=== PATIENT | male | born 1950 | race Caucasian/White ===

== ENCOUNTER 2024-12-03 13:25 | Observation (INO) | payer MEDICARE ==
--- NOTE | 2024-12-03 14:25 | XR ---
EXAMINATION TYPE: XR chest 2V DATE OF EXAM: 12/03/2024 2:22 PM COMPARISON: None. CLINICAL INDICATION: Male, 74 years old with history of difficulty breathing, TECHNIQUE: XR chest 2V view(s) obtained. FINDINGS: The heart size is normal. The pulmonary vasculature is normal. The lungs are clear. IMPRESSION: 1. No acute pulmonary process. [facility], , 12/03/2024 2:23 PM
[2024-12-03 14:28] LABS: Basophils % (A) 0 %; Eosinophils # (A) 0.2 k/uL (0-0.7); Eosinophils % (A) 1 %; HCT 47.1 % (39.0-53.0); HGB 14.6 gm/dL (13.0-17.5); Hypochromasia Slight; Lymphocytes # (A) 1.4 k/uL (1.0-4.8); Lymphocytes % (A) 9 %; MCHC 30.9 g/dL (31.0-37.0); Mean Platelet Volume 6.8; Monocytes # (A) 1.1 k/uL (0-1.0); Monocytes % (A) 7 %; Neutrophils # (A) 13.2 k/uL (1.3-7.7); Neutrophils % (A) 81 %; Platelet Count 308 k/uL (150-450); RBC 4.85 m/uL (4.30-5.90); WBC 16.2 k/uL (3.8-10.6)
[2024-12-03 14:34] LABS: ALT 19 U/L (4-49); AST 21 U/L (17-59); African American GFR (CKD) >90 (>60 ml/min/1.73 sqM); Albumin 3.8 g/dL (3.5-5.0); Alkaline Phosphatase 99 U/L (38-126); Anion Gap 9 mmol/L; Blood Urea Nitrogen 14 mg/dL (9-20); Carbon Dioxide 29 mmol/L (22-30); Chloride 97 mmol/L (98-107); Glucose 163 mg/dL (74-99); Magnesium 1.8 mg/dL (1.6-2.3); Non-African American GFR(CKD) 87 (>60 ml/min/1.73 sqM); Potassium 4.4 mmol/L (3.5-5.1); Sodium 135 mmol/L (137-145); Total Bilirubin 1.2 mg/dL (0.2-1.3)
[2024-12-03 14:40] LABS: INR 1.1 (<1.2); Partial Thromboplastin Time 23.7 sec (22.0-30.0); Prothrombin Time 11.6 sec (10.0-12.5)
[2024-12-03 15:04] LABS: Influenza A Not Detected (Not Detectd); Influenza B Not Detected (Not Detectd); RSV Not Detected (Not Detectd)
--- NOTE | 2024-12-03 15:47 | ED ---
SOB HPI - General Chief Complaint: Shortness of Breath Stated Complaint: SOB Time Seen by Provider: 12/03/24 13:37 Source: patient, EMS Mode of arrival: EMS Limitations: no limitations - History of Present Illness Initial Comments: 74-year-old male with past medical history of COPD presents to the emergency department from urgent care. Patient states that he has been short of breath for the past couple of days. He has several sick contacts in his household. He went into the urgent care where they found him in the 80s. He was given a double DuoNeb's breathing treatment, 125 mg Solu-Medrol and placed on a nonrebreather. Patient admits to a history of COPD but does not use any inhalers or nebulizers. Patient does not wear any oxygen at home. He denies chest pain or history of heart disease. No lower extremity swelling. Denies any fevers. Patient has not been on any recent antibiotics or steroids. no other alleviating, precipitating or modifying factors - Related Data Home Medications Medication Instructions Recorded Confirmed Levothyroxine Sodium [Synthroid] 125 mcg PO DAILY 12/03/24 12/03/24 Pregabalin [Lyrica] 50 mg PO TID 12/03/24 12/03/24 metFORMIN HCL [Glucophage] 500 mg PO BID 12/03/24 12/03/24 Previous Rx's Medication Instructions Recorded Azithromycin [Zithromax] 250 mg PO DAILY 3 Days #3 tab 12/04/24 Budesonide-Formot 160-4.5 Mcg 2 puff INHALATION RT-BID #1 each 12/04/24 [Symbicort 160-4.5 Mcg Inhaler] Pantoprazole [Protonix] 40 mg PO DAILY #14 tab 12/04/24 glipiZIDE 2.5 mg PO BID 5 Days #10 tab 12/04/24 methylPREDNISolone Dose Pack 4 mg PO DIRECTED #21 tab 12/04/24 [Medrol Dose Pack] Allergies Allergy/AdvReac Type Severity Reaction Status Date / Time No Known Allergies Allergy Verified 12/03/24 13:35 Review of Systems ROS Statement: Those systems with pertinent positive or pertinent negative responses have been documented in the HPI. ROS Other: All systems not noted in ROS Statement are negative. Past Medical History Past Medical History: COPD, Diabetes Mellitus, Thyroid Disorder Additional Past Medical History / Comment(s): Neuropathy History of Any Multi-Drug Resistant Organisms: None Reported Additional Past Surgical History / Comment(s): Bone spur surgery () Smoking Status: Current every day smoker Past Alcohol Use History: Rare Past Drug Use History: None Reported General Exam Limitations: no limitations General appearance: alert, obese Head exam: Present: atraumatic, normocephalic, normal inspection Eye exam: Present: normal appearance, PERRL, EOMI. Absent: scleral icterus, conjunctival injection, periorbital swelling ENT exam: Present: normal exam, mucous membranes moist Neck exam: Present: normal inspection. Absent: tenderness, meningismus, lymphadenopathy Respiratory exam: Present: wheezes, decreased breath sounds. Absent: respiratory distress, rales, rhonchi, stridor Cardiovascular Exam: Present: regular rate, normal rhythm, normal heart sounds. Absent: systolic murmur, diastolic murmur, rubs, gallop, clicks GI/Abdominal exam: Present: soft, normal bowel sounds. Absent: distended, tenderness, guarding, rebound, rigid Extremities exam: Present: normal inspection, full ROM, normal capillary refill. Absent: tenderness, pedal edema, joint swelling, calf tenderness Back exam: Present: normal inspection Neurological exam: Present: alert, oriented X3, CN II-XII intact Psychiatric exam: Present: normal affect, normal mood Skin exam: Present: warm, dry, intact, normal color. Absent: rash Course Vital Signs 12/03/24 12/03/24 12/03/24 13:27 13:38 14:40 Temperature 99.3 F Pulse Rate 93 96 Respiratory 22 22 20 Rate Blood Pressure 146/68 O2 Sat by Pulse 82 L 97 Oximetry 12/03/24 12/03/24 12/03/24 18:00 19:46 20:31 Temperature 98.9 F Pulse Rate 76 70 73 Respiratory 18 18 20 Rate Blood Pressure 111/76 84/48 94/75 O2 Sat by Pulse 95 99 93 L Oximetry Medical Decision Making - Medical Decision Making Was pt. sent in by a medical professional or institution (MINE Moses, GUM ROLLING MACHINE OPERATOR, urgent care, hospital, or fpc...) When possible be specific @ -Patient sent in from urgent care Did you speak to anyone other than the patient for history (EMS, parent, family, police, friend...)? What history was obtained from this source @ -Spoke with EMS for history Did you review nursing and triage notes (agree or disagree)? Why? @ -I reviewed and agree with nursing and triage notes Were old charts reviewed (outside hosp., previous admission, EMS record, old EKG, old radiological studies, urgent care reports/EKG's, fpc records)? Report findings @ -I reviewed the paperwork from the urgent care Differential Diagnosis (chest pain, altered mental status, abdominal pain women, abdominal pain men, vaginal bleeding, weakness, fever, dyspnea, syncope, headache, dizziness, GI bleed, back pain, seizure, CVA, palpatations, mental health, musculoskeletal)? @ -Differential Dyspnea: Coronary syndrome, arrhythmia, tamponade, asthma, COPD, pulmonary embolism, pneumonia, pneumothorax, pulmonary effusion, anaphylaxis, diabetic ketoacidosis, flailed chest, pulmonary contusion, diaphragmatic rupture, anemia, neuromuscular, this is not meant to be an all-inclusive list. EKG interpreted by me (3pts min.). @ -Yes and demonstrates sinus rhythm with a rate of 89. MD interval 164. QRS 152. QTc of 412. No acute ST segment elevations. Right bundle branch block X-rays interpreted by me (1pt min.). @ -Yes which demonstrates no acute process CT interpreted by me (1pt min.). @ -None done U/S interpreted by me (1pt. min.). @ -None done What testing was considered but not performed or refused? (CT, X-rays, U/S, labs)? Why? @ -None What meds were considered but not given or refused? Why? @ -None Did you discuss the management of the patient with other professionals (professionals i.e. , PA, GUM ROLLING MACHINE OPERATOR, lab, RT, psych nurse, oncology social work, steam table worker, teacher, medical scientific officer, senior case manager)? Give summary @ -Spoke with Lauren from [facility] for the admission Was smoking cessation discussed for >3mins.? @ -No Was critical care preformed (if so, how long)? @ -No Were there social determinants of health that impacted care today? How? (Michelle elessness, low income, unemployed, alcoholism, drug addiction, transportation, low edu. Level, literacy, decrease access to med. care, fpc, rehab)? @ -No Was there de-escalation of care discussed even if they declined (Discuss DNR or withdrawal of care, Hospice)? DNR status @ -No What co-morbidities impacted this encounter? (DM, HTN, Smoking, COPD, CAD, Cancer, CVA, ARF, Chemo, Hep., AIDS, mental health diagnosis, sleep apnea, morbid obesity)? @ -COPD Was patient admitted / discharged? Hospital course, mention meds given and route, prescriptions, significant lab abnormalities, going to OR and other pertinent info. @ -Upon arrival patient seen and evaluated in bed 15. He is 82% on room air. He is placed on a nasal cannula. Twelve-lead EKG is performed. Laboratory studies are conducted. Chest x-ray is performed. Patient was given a breathing treatment and started on Solu-Medrol. Recommended admission for COPD exacerbation. Patient was agreeable to this. Spoke with Lauren from [facility] for the admission Undiagnosed new problem with uncertain prognosis? @ -No Drug Therapy requiring intensive monitoring for toxicity (Heparin, Nitro, Insulin, Cardizem)? @ -No Were any procedures done? @ -No Diagnosis/symptom? @ -Acute hypoxic respiratory failure, acute exacerbation of COPD Acute, or Chronic, or Acute on Chronic? @ -Acute Uncomplicated (without systemic symptoms) or Complicated (systemic symptoms)? @ -Complicated Side effects of treatment? @ -No Exacerbation, Progression, or Severe Exacerbation? @ -Yes Poses a threat to life or bodily function? How? (Chest pain, USA, DC, pneumonia, PE, COPD, DKA, ARF, appy, cholecystitis, CVA, Diverticulitis, Homicidal, Suicida l, threat to staff... and all critical care pts) @ -Yes as patient is hypoxic - Lab Data Result diagrams: 12/04/24 03:08 12/04/24 03:08 Lab Results 12/03/24 12/03/24 12/03/24 Range/Units 13:56 13:56 13:56 WBC 16.2 H (3.8-10.6) k/uL RBC 4.85 (4.30-5.90) m/uL Hgb 14.6 (13.0-17.5) gm/dL Hct 47.1 (39.0-53.0) % MCV 97.0 (80.0-100.0) fL MCH 30.0 (25.0-35.0) pg MCHC 30.9 L (31.0-37.0) g/dL RDW 13.0 (11.5-15.5) % Plt Count 308 (150-450) k/uL MPV 6.8 Neutrophils % 81 % Lymphocytes % 9 % Monocytes % 7 % Eosinophils % 1 % Basophils % 0 % Neutrophils # 13.2 H (1.3-7.7) k/uL Lymphocytes # 1.4 (1.0-4.8) k/uL Monocytes # 1.1 H (0-1.0) k/uL Eosinophils # 0.2 (0-0.7) k/uL Basophils # 0.0 (0-0.2) k/uL Hypochromasia Slight PT 11.6 (10.0-12.5) sec INR 1.1 (<1.2) APTT 23.7 (22.0-30.0) sec Sodium 135 L (137-145) mmol/L Potassium 4.4 (3.5-5.1) mmol/L Chloride 97 L (98-107) mmol/L Carbon Dioxide 29 (22-30) mmol/L Anion Gap 9 mmol/L BUN 14 (9-20) mg/dL Creatinine 0.86 (0.66-1.25) mg/dL Est GFR (CKD-EPI)AfAm >90 (>60 ml/min/1.73 sqM) Est GFR (CKD-EPI)NonAf 87 (>60 ml/min/1.73 sqM) Glucose 163 H (74-99) mg/dL Plasma Lactic Acid Aditya (0.7-2.0) mmol/L Calcium 9.0 (8.4-10.2) mg/dL Magnesium 1.8 (1.6-2.3) mg/dL Total Bilirubin 1.2 (0.2-1.3) mg/dL AST 21 (17-59) U/L ALT 19 (4-49) U/L Alkaline Phosphatase 99 (38-126) U/L Troponin I (0.000-0.034) ng/mL Total Protein 7.0 (6.3-8.2) g/dL Albumin 3.8 (3.5-5.0) g/dL Influenza Type A (PCR) (Not Detectd) Influenza Type B (PCR) (Not Detectd) RSV (PCR) (Not Detectd) SARS-CoV-2 (PCR) (Not Detectd) 12/03/24 12/03/24 12/03/24 Range/Units 13:56 13:56 13:57 WBC (3.8-10.6) k/uL RBC (4.30-5.90) m/uL Hgb (13.0-17.5) gm/dL Hct (39.0-53.0) % MCV (80.0-100.0) fL MCH (25.0-35.0) pg MCHC (31.0-37.0) g/dL RDW (11.5-15.5) % Plt Count (150-450) k/uL MPV Neutrophils % % Lymphocytes % % Monocytes % % Eosinophils % % Basophils % % Neutrophils # (1.3-7.7) k/uL Lymphocytes # (1.0-4.8) k/uL Monocytes # (0-1.0) k/uL Eosinophils # (0-0.7) k/uL Basophils # (0-0.2) k/uL Hypochromasia PT (10.0-12.5) sec INR (<1.2) APTT (22.0-30.0) sec Sodium (137-145) mmol/L Potassium (3.5-5.1) mmol/L Chloride (98-107) mmol/L Carbon Dioxide (22-30) mmol/L Anion Gap mmol/L BUN (9-20) mg/dL Creatinine (0.66-1.25) mg/dL Est GFR (CKD-EPI)AfAm (>60 ml/min/1.73 sqM) Est GFR (CKD-EPI)NonAf (>60 ml/min/1.73 sqM) Glucose (74-99) mg/dL Plasma Lactic Acid Aditya 1.5 (0.7-2.0) mmol/L Calcium (8.4-10.2) mg/dL Magnesium (1.6-2.3) mg/dL Total Bilirubin (0.2-1.3) mg/dL AST (17-59) U/L ALT (4-49) U/L Alkaline Phosphatase (38-126) U/L Troponin I <0.012 (0.000-0.034) ng/mL Total Protein (6.3-8.2) g/dL Albumin (3.5-5.0) g/dL Influenza Type A (PCR) Not Detected (Not Detectd) Influenza Type B (PCR) Not Detected (Not Detectd) RSV (PCR) Not Detected (Not Detectd) SARS-CoV-2 (PCR) Not Detected (Not Detectd) Disposition Clinical Impression: Hypoxia, COPD exacerbation Disposition: ADMITTED IP TO THIS [facility] Condition: Stable Is patient prescribed a controlled substance at d/c from ED?: No Time of Disposition: 17:20 Decision to Admit Reason: Admit from EC Decision Date: 12/03/24 Decision Time: 17:21
[2024-12-03] MEDS ORDERED: ACETAMINOPHEN TAB 325 MG TAB PO PRN (17:21)
[2024-12-03] MEDS ORDERED: NALOXONE 0.4 MG/ML 1 ML VIAL IV PRN (17:21)
[2024-12-03] MEDS: IPRATROPIUM-ALBUTEROL 3 ML NEB INHALATION SCH (20:09)
[2024-12-03] MEDS ORDERED: IPRATROPIUM-ALBUTEROL 3 ML NEB INHALATION PRN (20:10)
[2024-12-03 20:27] LABS: Glucose,Whole Blood 199 mg/dL (70-110)
[2024-12-03] MEDS ORDERED: DEXTROSE 50% SYRINGE 50 ML IVP PRN ×2 (23:12)
[2024-12-03] MEDS ORDERED: ONDANSETRON 4 MG/2 ML VIAL IVP PRN (23:14)
[2024-12-03] MEDS: PREGABALIN 50 MG CAP PO SCH (23:33)
--- NOTE | 2024-12-04 02:58 | P.CNPUL ---
History of Present Illness Consult date: 12/04/24 Requesting physician: Sophy Mulligan Reason for consult: COPD Chief complaint: Shortness of breath, congestion, wheezing History of present illness: Patient is a 74-year-old male from the [place] area. Reportedly, [facility], helping take care of his niece. Sent in to the emergency department yesterday afternoon from local urgent care center on ., noted to be hypoxic with an SpO2 reading in the 80s. States he has been short of breath over the last few weeks, and is particularly worse over the last 2 to 3 days. He reportedly has history of COPD, but does not have any inhalers. Smokes approximately 3 packs of cigarettes per week. Also, has past medical history significant for diabetes, neuropathy, and hypothyroidism. Workup in the emergency department including a chest x-ray which did not show any acute infiltrates or evidence of pneumonia. Viral screen negative for influenza, RSV, COVID. CBC: WBC count 16.2, hemoglobin 14.6, platelets 308. BMP: Sodium 135, p otassium 4.4, chloride 97, serum bicarb 29, BUN 14, creatinine 0.86, glucose 163. Lactic 1.5. LFTs not elevated. Troponin 0.012 NT proBNP 171. EKG: Normal sinus rhythm, rate 89 bpm, interventricular conduction delay. Patient is currently being evaluated on the general medical floor. Currently on 3 L/min nasal cannula. Does not appear to be any respiratory distress. Faint expiratory wheezes heard on auscultation. Denies any recent sick contacts. Denies any fevers or chills. Does endorse increased cough with green phlegm. Denies any hemoptysis, chest pain. Denies any recent treatments with antibiotics. Denies any chest pain, heart palpitations, syncopal events, orthopnea, PND, or lower extremity edema. Current vital signs: Temperature 97.8 F, heart rate 58 bpm, blood pressure 90/57 mmHg, nontachypneic, SpO2 reading 91% on 3 L/min nasal cannula. Review of Systems Constitutional: Reports fatigue, Denies chills, Denies fever, Denies poor appetite, Denies weight gain, Denies weight loss Ears, nose, mouth and throat: Denies headache, Denies nasal congestion, Denies nasal discharge, Denies post-nasal drip, Denies sinus pain, Denies sinus pressure, Denies sore throat Cardiovascular: Reports dyspnea on exertion, Denies chest pain, Denies leg edema, Denies lightheadedness, Denies orthopnea, Denies palpitations, Denies paroxysmal nocturnal dyspnea, Denies syncope Respiratory: Reports as per HPI Gastrointestinal: Denies abdominal pain, Denies diarrhea, Denies nausea, Denies vomiting Genitourinary: Denies dysuria, Denies flank pain, Denies hematuria Musculoskeletal: Denies limitation of motion Integumentary: Denies rash, Denies sores, Denies wounds Neurological: Denies seizures, Denies syncope Psychiatric: Denies anxiety, Denies depression Past Medical History Past Medical History: COPD, Diabetes Mellitus, Thyroid Disorder Additional Past Medical History / Comment(s): Neuropathy History of Any Multi-Drug Resistant Organisms: None Reported Additional Past Surgical History / Comment(s): Bone spur surgery in toes () Past Anesthesia/Blood Transfusion Reactions: No Reported Reaction Past Psychological History: No Psychological Hx Reported Smoking Status: Current every day smoker Past Alcohol Use History: Rare Past Drug Use History: None Reported Medications and Allergies Home Medications Medication Instructions Recorded Confirmed Type Levothyroxine Sodium [Synthroid] 125 mcg PO DAILY 12/03/24 12/03/24 History Pregabalin [Lyrica] 50 mg PO TID 12/03/24 12/03/24 History metFORMIN HCL [Glucophage] 500 mg PO BID 12/03/24 12/03/24 History Allergies Allergy/AdvReac Type Severity Reaction Status Date / Time No Known Allergies Allergy Verified 12/03/24 13:35 Physical Exam Vitals: Vital Signs Temp Pulse Pulse Resp BP BP Pulse Ox 12/04/24 00:22 97.8 F 58 L 20 94/57 91 L 12/03/24 22:00 97.7 F 65 20 107/68 93 L 12/03/24 20:31 73 20 94/75 93 L 12/03/24 19:46 70 18 84/48 99 12/03/24 18:00 98.9 F 76 18 111/76 95 12/03/24 14:40 96 20 146/68 97 12/03/24 13:38 22 12/03/24 13:27 99.3 F 93 22 82 L Intake and Output 02/24/25 02/24/25 02/25/25 14:59 22:59 06:59 Other: Voiding Method Toilet Urinal Weight 142.882 kg 142.882 kg GENERAL EXAM: Alert, 74-year-old obese male, comfortable in no apparent distress. HEAD: Normocephalic and atraumatic EYES: Normal reaction of pupils, equal size. NOSE: Clear with pink turbinates. THROAT: No erythema or exudates. NECK: No masses, no JVD. CHEST: No chest wall deformity. LUNGS: Equal air entry with bilateral faint end expiratory wheezing, heard posteriorly. on 3 L/min nasal cannula. No conversational dyspnea or accessory muscle use.. CVS: S1 and S2 normal with no audible murmur, regular rhythm. No extra heart sounds ABDOMEN: No hepatosplenomegaly, active bowel sounds, no guarding or rigidity. SPINE: No scoliosis or deformity SKIN: No rashes CENTRAL NERVOUS SYSTEM: No focal deficits, tone is normal in all 4 extremities. EXTREMITIES: There is no peripheral edema, clubbing, or cyanosis. Peripheral pulses are intact. Results - Laboratory Findings CBC and BMP: 12/03/24 13:56 12/03/24 13:56 PT/INR, D-dimer PT 11.6 sec (10.0-12.5) 12/03/24 13:56 INR 1.1 (<1.2) 12/03/24 13:56 Abnormal lab findings: Abnormal Labs 12/03/24 12/03/24 12/03/24 13:56 13:56 20:25 WBC 16.2 H MCHC 30.9 L Neutrophils # 13.2 H Monocytes # 1.1 H Sodium 135 L Chloride 97 L Glucose 163 H POC Glucose (mg/dL) 199 H - Diagnostic Findings Chest x-ray: image reviewed Assessment and Plan Assessment: Acute COPD exacerbation Acute hypoxemic respiratory failure, secondary to above Acute leukocytosis Diabetes mellitus type 2 Diabetic peripheral neuropathy History of hypothyroidism Morbid obesity, with a BMI of 40.3 kg/m Chronic ongoing tobacco dependence, reportedly smokes 3 packs/week on average Plan: Patient's medications, labs, chest x-ray reviewed Viral screen unremarkable for influenza A/B, RSV, COVID Continue supplemental oxygen maintain oxygen saturation of 92% or greater Continue combination of bronchodilators, Symbicort inhaler, and IV Solu-Medrol Add empiric azithromycin Obtain sputum culture Smoking cessation counseling performed Nicotine patch offered GI prophylaxis: Protonix We will continue to follow I have personally seen and examined the patient, performed the documentation and the assessment and plan as written. Number of minutes spent on the visit:20 Time with Patient: Greater than 30
[2024-12-04] MEDS: AZITHROMYCIN 500 MG TAB PO ONE (04:11)
[2024-12-04 04:25] LABS: Basophils % (A) 0 %; Eosinophils % (A) 0 %; HCT 48.4 % (39.0-53.0); HGB 14.7 gm/dL (13.0-17.5); Hypochromasia Moderate; Lymphocytes # (A) 0.8 k/uL (1.0-4.8); Lymphocytes % (A) 7 %; MCH 30.1 pg (25.0-35.0); MCHC 30.5 g/dL (31.0-37.0); MCV 98.8 fL (80.0-100.0); Mean Platelet Volume 6.8; Monocytes # (A) 0.6 k/uL (0-1.0); Monocytes % (A) 4 %; Neutrophils # (A) 11.6 k/uL (1.3-7.7); Neutrophils % (A) 89 %; Platelet Count 331 k/uL (150-450); WBC 13.1 k/uL (3.8-10.6)
[2024-12-04 06:09] LABS: Glucose,Whole Blood 272 mg/dL (70-110)
[2024-12-04] MEDS: PANTOPRAZOLE 40 MG TABLET PO SCH (06:22)
[2024-12-04] MEDS: methylPREDNISolone SOD SUCCI 125 MG/2 ML VIAL IV SCH (06:22)
[2024-12-04] MEDS: LEVOTHYROXINE 125 MCG TAB PO SCH (06:22)
[2024-12-04] MEDS: INSULIN LISPRO (HumaLOG) 100 UNIT/ML 10 mL VL SQ SCH (06:32)
[2024-12-04] MEDS ORDERED: methylPREDNISolone SOD SUCCI 40 MG/ML 1 ML VIAL IV SCH (08:00)
[2024-12-04 08:42] LABS: BUN/Creat Ratio 21.12 Ratio (12.00-20.00); Blood Urea Nitrogen 16.9 mg/dL (9.0-27.0); Calcium 9.2 mg/dL (8.7-10.3); Chloride 100 mmol/L (96-109); Glucose 203 mg/dL (70-110); Potassium 4.7 mmol/L (3.5-5.5); Sodium 139 mmol/L (135-145)
[2024-12-04] MEDS: NICOTINE 21MG/24HR PATCH TRANSDERM SCH (08:48)
[2024-12-04] MEDS: IPRATROPIUM-ALBUTEROL 3 ML NEB INHALATION SCH (08:50)
[2024-12-04] MEDS: SYMBICORT 160-4.5 MCG INHALER INHALATION SCH (08:50)
[2024-12-04 11:34] LABS: Glucose,Whole Blood 210 mg/dL (70-110)
[2024-12-04 17:23] VITALS: BP 93/55; PULSE 98; RESP 18; TEMP 97.6
[2024-12-05] MEDS ORDERED: AZITHROMYCIN 500 MG TAB PO SCH (09:00)
--- NOTE | 2024-12-05 15:09 | P.HPIM ---
History of Present Illness H&P Date: 12/05/24 This is a 74-year-old male with medical history significant for COPD, diabetes mellitus, hypothyroidism, peripheral neuropathy, chronic smoker. Patient comes in with complaints of cough and shortness of breath ongoing for the last 2 days states that he has some thick green-brown sputum. He is not having any fever or chills. Denies any chest pain. Denies any nausea vomiting or diarrhea. Patient does not wear oxygen at baseline. He states that he uses his niece's nebulizer occasionally. His white blood cell count on admission at 16.2, sodium 135, BUN of 14 creatinine of 0.86 his blood glucose is in the 100s. Hemoglobin A1c found to be 8.3. Troponin level was negative proBNP 171. Procalcitonin level was negative at 0.04. Patient's viral panel was negative for influenza RSV and COVID. Chest x-ray reveals no acute cardiopulmonary process. While in the ER patient was given IV steroids, updraft and started on oral azithromycin. Patient was admitted to the hospital under internal medicine with a consult placed to pulmonology. Time of my evaluation patient is currently improved he states that his cough is significantly better. He has been up ambulating reporting less shortness of breath. He reports that he was cleared by pulmonary for discharge home and will like to go. Home oxygen test was completed and patient was found to be hypoxic down to 84% on room air and this is likely a chronic issue and patient will be discharged with home oxygen. REVIEW OF SYSTEMS: CONSTITUTIONAL: No fever, no malaise, no fatigue. HEENT: No recent visual problems or hearing problems. Denied any sore throat. CARDIOVASCULAR: No chest pain, orthopnea, PND, no palpitations, no syncope. PULMONARY: Productive cough and shortness of breath, no hemoptysis. GASTROINTESTINAL: No diarrhea, no nausea, no vomiting, no abdominal pain. NEUROLOGICAL: No headaches, no weakness, no numbness. HEMATOLOGICAL: Denies any bleeding or petechiae. GENITOURINARY: Denies any burning micturition, frequency, or urgency. MUSCULOSKELETAL/RHEUMATOLOGICAL: Denies any joint pain, swelling, or any muscle pain. ENDOCRINE: Denies any polyuria or polydipsia. The rest of the 14-point review of systems is negative. PHYSICAL EXAMINATION: GENERAL: The patient is alert and oriented x3, not in any acute distress. Well developed, well nourished. Obese HEENT: Pupils are round and equally reacting to light. EOMI. No scleral icterus. No conjunctival pallor. Normocephalic, atraumatic. No pharyngeal erythema. No thyromegaly. CARDIOVASCULAR: S1 and S2 present. No murmurs, rubs, or gallops. Scattered faint wheezing throughout PULMONARY: Chest is clear to auscultation, no wheezing or crackles. ABDOMEN: Soft, nontender, nondistended, normoactive bowel sounds. No palpable organomegaly. MUSCULOSKELETAL: No joint swelling or deformity. EXTREMITIES: No cyanosis, clubbing, or pedal edema. NEUROLOGICAL: Gross neurological examination did not reveal any focal deficits. SKIN: No rashes. Assessment and plan Acute COPD exacerbation Acute hypoxemic respiratory failure secondary to above Leukocytosis Diabetes mellitus type 2 with hyperglycemia uncontrolled hemoglobin A1c of 8.3 History of hypothyroidism maintained on levothyroxine Diabetic peripheral neuropathy Chronic and ongoing nicotine use Morbid Obesity GI prophylaxis DVT prophylaxis Full Code Plan Patient has been started on scheduled updrafts Patient continues on IV solumedrol Continue oral azithromycin Continue accuchecks achs and sliding scale insulin Resume appropriate home medication Nicotine patch offered Pulmonology following Monitor WBC The impression and plan of care has been dictated by Kaylene Edwards Nurse Practitioner as directed. Dr. Castillo MD I have performed a history and physical examination and medical decision making of this patient, discussed the same with the dictator, and agree with the dictators assessment and plan as written, documented as a scribe. Based on total visit time, I have performed more than 50% of this visit. Past Medical History Past Medical History: COPD, Diabetes Mellitus, Thyroid Disorder Additional Past Medical History / Comment(s): Neuropathy History of Any Multi-Drug Resistant Organisms: None Reported Additional Past Surgical History / Comment(s): Bone spur surgery in toes () Past Anesthesia/Blood Transfusion Reactions: No Reported Reaction Past Psychological History: No Psychological Hx Reported Smoking Status: Current every day smoker Past Alcohol Use History: Rare Past Drug Use History: None Reported Medications and Allergies Home Medications Medication Instructions Recorded Confirmed Type Levothyroxine Sodium [Synthroid] 125 mcg PO DAILY 12/03/24 12/03/24 History Pregabalin [Lyrica] 50 mg PO TID 12/03/24 12/03/24 History metFORMIN HCL [Glucophage] 500 mg PO BID 12/03/24 12/03/24 History Azithromycin [Zithromax] 250 mg PO DAILY 3 Days #3 tab 12/04/24 Rx Budesonide-Formot 160-4.5 Mcg 2 puff INHALATION RT-BID #1 each 12/04/24 Rx [Symbicort 160-4.5 Mcg Inhaler] Pantoprazole [Protonix] 40 mg PO DAILY #14 tab 12/04/24 Rx glipiZIDE 2.5 mg PO BID 5 Days #10 tab 12/04/24 Rx methylPREDNISolone Dose Pack 4 mg PO DIRECTED #21 tab 12/04/24 Rx [Medrol Dose Pack] Allergies Allergy/AdvReac Type Severity Reaction Status Date / Time No Known Allergies Allergy Verified 12/03/24 13:35 Physical Exam Vitals: Vital Signs Temp Pulse Pulse Resp BP BP Pulse Ox 12/04/24 08:15 58 L 20 12/04/24 07:39 97.5 F L 65 17 107/69 90 L 12/04/24 00:22 97.8 F 58 L 20 94/57 91 L 12/03/24 22:00 97.7 F 65 20 107/68 93 L 12/03/24 20:31 73 20 94/75 93 L 12/03/24 19:46 70 18 84/48 99 12/03/24 18:00 98.9 F 76 18 111/76 95 12/03/24 14:40 96 20 146/68 97 12/03/24 13:38 22 12/03/24 13:27 99.3 F 93 22 82 L Intake and Output 12/03/24 12/04/24 12/04/24 22:59 06:59 14:59 Other: Voiding Method Toilet Toilet Urinal Urinal # Voids 1 1 Weight 142.882 kg Results CBC & Chem 7: 12/04/24 03:08 12/04/24 03:08 Labs: Abnormal Lab Results - Last 24 Hours (Table) 12/03/24 12/03/24 12/03/24 Range/Units 13:56 13:56 20:25 WBC 16.2 H (3.8-10.6) k/uL MCHC 30.9 L (31.0-37.0) g/dL Neutrophils # 13.2 H (1.3-7.7) k/uL Lymphocytes # (1.0-4.8) k/uL Monocytes # 1.1 H (0-1.0) k/uL Sodium 135 L (137-145) mmol/L Chloride 97 L (98-107) mmol/L BUN/Creatinine Ratio (12.00-20.00) Ratio Glucose 163 H (74-99) mg/dL POC Glucose (mg/dL) 199 H (70-110) mg/dL Hemoglobin A1c (<=6.0) % 12/04/24 12/04/24 12/04/24 Range/Units 03:08 03:08 03:08 WBC 13.1 H (3.8-10.6) k/uL MCHC 30.5 L (31.0-37.0) g/dL Neutrophils # 11.6 H (1.3-7.7) k/uL Lymphocytes # 0.8 L (1.0-4.8) k/uL Monocytes # (0-1.0) k/uL Sodium (137-145) mmol/L Chloride (98-107) mmol/L BUN/Creatinine Ratio 21.12 H (12.00-20.00) Ratio Glucose 203 H (74-99) mg/dL POC Glucose (mg/dL) (70-110) mg/dL Hemoglobin A1c 8.3 H (<=6.0) % 12/04/24 Range/Units 06:08 WBC (3.8-10.6) k/uL MCHC (31.0-37.0) g/dL Neutrophils # (1.3-7.7) k/uL Lymphocytes # (1.0-4.8) k/uL Monocytes # (0-1.0) k/uL Sodium (137-145) mmol/L Chloride (98-107) mmol/L BUN/Creatinine Ratio (12.00-20.00) Ratio Glucose (74-99) mg/dL POC Glucose (mg/dL) 272 H (70-110) mg/dL Hemoglobin A1c (<=6.0) % Thrombosis Risk Factor Assmnt - Choose All That Apply Each Factor Represents 1 point: Obesity (BMI >25) Each Risk Factor Represents 2 Points: Age 61-74 years Other congenital or acquired thrombophilia - If yes, enter type in comment: No Thrombosis Risk Factor Assessment Total Risk Factor Score: 3 Thrombosis Risk Factor Assessment Level: Moderate Risk Assessment and Plan Time with Patient: Less than 30
--- NOTE | 2024-12-06 06:50 | P.DS ---
Providers Date of admission: 12/03/24 17:23 Attending physician: Sourav Randall Consults: 12/03/24 17:21 Consult Physician Urgent Consulting Provider: Krista Kovacs Consult Reason/Comments: acute hypoxia, acute copd exacerbation Do you want consulting provider notified?: Yes Primary care physician: Physician Nonstaff Hospital Course: Final Diagnosis Acute COPD exacerbation Acute hypoxemic respiratory failure secondary to above Leukocytosis Diabetes mellitus type 2 with hyperglycemia uncontrolled hemoglobin A1c of 8.3 History of hypothyroidism maintained on levothyroxine Diabetic peripheral neuropathy Chronic and ongoing nicotine use Morbid Obesity Discharge Disposition Patient is stable for discharge home. patient to continue prednisone burst and taper. Complete course of oral azithromycin. Patient is diabetic and will recommend oral glipizide for 5 days twice daily while patient tapers off prednisone. Patient will be set up with home oxygen on discharge. Follow up with pulmonology in the office in 1 to 2 weeks. Hospital Course This is a 74-year-old male with medical history significant for COPD, diabetes mellitus, hypothyroidism, peripheral neuropathy, chronic smoker. Patient comes in with complaints of cough and shortness of breath ongoing for the last 2 days states that he has some thick green-brown sputum. He is not having any fever or chills. Denies any chest pain. Denies any nausea vomiting or diarrhea. Patient does not wear oxygen at baseline. He states that he uses his niece's nebulizer occasionally. His white blood cell count on admission at 16.2, sodium 135, BUN of 14 creatinine of 0.86 his blood glucose is in the 100s. Hemoglobin A1c found to be 8.3. Troponin level was negative proBNP 171. Procalcitonin level was negative at 0.04. Patient's viral panel was negative for influenza RSV and COVID. Chest x-ray reveals no acute cardiopulmonary process. While in the ER patient was given IV steroids, updraft and started on oral azithromycin. Patient was admitted to the hospital under internal medicine with a consult placed to pulmonology. Time of my evaluation patient is currently improved he states that his cough is significantly better. He has been up ambulating reporting less shortness of breath. He reports that he was cleared by pulmonary for discharge home and will like to go. Home oxygen test was completed and patient was found to be hypoxic down to 84% on room air and this is likely a chronic issue and patient will be discharged with home oxygen. There is no significant wheezing noted on examination. Patient has been up ambulating. AO x 3. Please see medication reconciliation for a list of current medications. Thank you for allowing us to participate in the care of this patient. The impression and plan of care has been dictated by Kaylene Edwards, Nurse Practitioner as directed. Dr. Castillo MD I have performed a history and physical examination and medical decision making of this patient, discussed the same with the dictator, and agree with the dictators assessment and plan as written, documented as a scribe. Based on total visit time, I have performed more than 50% of this visit. Patient Condition at Discharge: Stable Plan - Discharge Summary New Discharge Prescriptions: New glipiZIDE 2.5 mg PO BID 5 Days #10 tab methylPREDNISolone Dose Pack [Medrol Dose Pack] 4 mg PO DIRECTED #21 tab Pantoprazole [Protonix] 40 mg PO DAILY #14 tab Budesonide-Formot 160-4.5 Mcg [Symbicort 160-4.5 Mcg Inhaler] 2 puff INHALATION RT-BID #1 each Azithromycin [Zithromax] 250 mg PO DAILY 3 Days #3 tab Continue metFORMIN HCL [Glucophage] 500 mg PO BID Pregabalin [Lyrica] 50 mg PO TID Levothyroxine Sodium [Synthroid] 125 mcg PO DAILY Discharge Medication List Levothyroxine Sodium [Synthroid] 125 mcg PO DAILY 12/03/24 [History] Pregabalin [Lyrica] 50 mg PO TID 12/03/24 [History] metFORMIN HCL [Glucophage] 500 mg PO BID 12/03/24 [History] Azithromycin [Zithromax] 250 mg PO DAILY 3 Days #3 tab 12/04/24 [Rx] Budesonide-Formot 160-4.5 Mcg [Symbicort 160-4.5 Mcg Inhaler] 2 puff INHALATION RT-BID #1 each 12/04/24 [Rx] Pantoprazole [Protonix] 40 mg PO DAILY #14 tab 12/04/24 [Rx] glipiZIDE 2.5 mg PO BID 5 Days #10 tab 12/04/24 [Rx] methylPREDNISolone Dose Pack [Medrol Dose Pack] 4 mg PO DIRECTED #21 tab 12/04/24 [Rx] Follow up Appointment(s)/Referral(s): [facility],Equipment [NON-STAFF] - As Needed (Call [facility] once home to arrange delivery of the oxygen concentrator today) Nonstaff,Physician [Primary Care Provider] - 1-2 days (Call your Primary care provider to make an appointment.) Patient Instructions/Handouts: COPD (Chronic Obstructive Pulmonary Disease) (DC) Activity/Diet/Wound Care/Special Instructions: Follow up with your senior data architect on discharge Continue oral prednisone taper Continue oral glipizide twice day for 5 days this is to help control your blood glucose while you are on the steroids Complete 3 more days of oral azithromycin Discharge Disposition: HOME SELF-CARE
== END 2024-12-04 17:24 | disposition home or self-care (01) ==
LOC: EC 13:25 → SUPCPDRO 13:25 → 4SSUR 17:23 → INTOOBSV 17:23 → 4SSUR 18:27
PROVIDERS: ADMIT Hospitalist; ATTEND Hospitalist
DX: J44.1 Chronic obstructive pulmonary disease with (acute) exacerbation (principal); J96.01 Acute respiratory failure with hypoxia; D72.829 Elevated white blood cell count, unspecified; E03.9 Hypothyroidism, unspecified; E11.42 Type 2 diabetes mellitus with diabetic polyneuropathy; E11.65 Type 2 diabetes mellitus with hyperglycemia; E66.01 Morbid (severe) obesity due to excess calories; F17.210 Nicotine dependence, cigarettes, uncomplicated; Z68.41 Body mass index [BMI] 40.0-44.9, adult; Z71.6 Tobacco abuse counseling; Z79.84 Long term (current) use of oral hypoglycemic drugs; Z79.51 Long term (current) use of inhaled steroids; Z79.890 Hormone replacement therapy; Z79.899 Other long term (current) drug therapy
CPT/HCPCS: 96376; 96374; 99285; 36415; 93005; 83880; 80053; 80048; 83605; 83735; 84484; 85025 ×2; 85610; 85730; 83036; 84145; 87636; 71046; G0378 ×2; S4990; J2919